=== PATIENT | male | born 1960 | race Caucasian/White ===

== ENCOUNTER 2024-02-06 12:29 | Day surgery (SDC) | payer BC ==
[2024-02-06 13:23] VITALS: RESP 16; TEMP 97.8
[2024-02-06] MEDS: LACTATED RINGERS 1,000 ML IV SCH (13:23)
[2024-02-06] MEDS ORDERED: PROPOFOL 10 MG/ML 20 ML VIAL IV ONE (13:44)
--- NOTE | 2024-02-06 14:03 | P.PCN ---
Date of Procedure: 02/06/24 Procedure(s) Performed: BRIEF HISTORY: Patient is a 63-year-old pleasant white male scheduled for an elective colonoscopy as a part of screening for colon cancer. PROCEDURE PERFORMED: Colonoscop with snare polypectomy y. PREOPERATIVE DIAGNOSIS: Screening for colon cancer. IV sedation per Anesthesia. PROCEDURE: After informed consent was obtained, the patient, was brought into the endoscopy unit. IV sedation was administered by Anesthesia under continuous monitoring. Digital rectal examination was normal. Initially the Olympus CF-160 flexible video colonoscope was then inserted in the rectum, gradually advanced into the cecum without any difficulty. Careful examination was performed as the scope was gradually being withdrawn. Ileocecal valve and the appendiceal orifice were visualized and appeared normal. Prep was excellent. Mucosa of the cecum, ascending colon, transverse colon, descending colon, sigmoid colon, and rectum appeared normal. The mid rectum there were 2 polyps measuring 1 cm and 1.5 cm in size removed by snare polypectomy. Retroflexion was performed in the rectum and no lesions were seen. The patient tolerated the procedure well. IMPRESSION: 1 cm and 1.5 cm mid rectal polyps status post polypectomy Rest of the colon appeared normal RECOMMENDATIONS: Findings of this examination were discussed with the patient as well as his family. He was advised to follow with the biopsy results. If the biopsy results revealed adenoma amended a repeat colonoscopy in 3 years..
[2024-02-06 14:35] VITALS: BP 127/83; PULSE 69
== END 2024-02-06 15:00 | disposition home or self-care (01) ==
LOC: ORWHC2ENDO 12:29
PROVIDERS: ATTEND Internal Medicine Gastroenterology
DX: Z12.11 Encounter for screening for malignant neoplasm of colon (principal); D12.8 Benign neoplasm of rectum; G47.33 Obstructive sleep apnea (adult) (pediatric); N40.0 Benign prostatic hyperplasia without lower urinary tract symptoms; Z79.899 Other long term (current) drug therapy; Z98.890 Other specified postprocedural states
CPT/HCPCS: 88305; 45385; J2704